=== PATIENT | female | born 1960 | race Two or more races ===

== ENCOUNTER 2020-01-01 18:20 | Emergency (ER) | payer OTHER ==
[~2020-01-01] VITALS: Ht 167.6 cm; Wt 77.0 kg
[2020-01-01 18:23] VITALS: BP 162/96
== END 2020-01-02 | disposition left against medical advice (07) ==
LOC: ER 18:20
DX: Z53.21 Procedure and treatment not carried out due to patient leaving prior to being seen by health care provider (principal)